=== PATIENT | male | born 1995 | race Hispanic/Latino ===

== ENCOUNTER 2024-02-16 09:02 | Inpatient (IN) | payer MEDICAID ==
[~2024-02-16] VITALS: Ht 162.6 cm; Wt 63.5 kg
[2024-02-16 10:24] LABS: EOSINOPHILS # (AUTO) 0.02 K/uL (0.00-0.70); EOSINOPHILS % (AUTO) 0.2 % (0.0-8.0); HEMATOCRIT 37.9 % (42-54); IMMATURE GRANULOCYTE ABSOLUTE 0.73 K/uL (0-1); LYMPHOCYTES # (AUTO) 0.7 K/uL (1.0-4.8); LYMPHOCYTES % (AUTO) 6.3 % (21.0-51.0); MEAN CORPUSCULAR HEMOGLOBIN 27.2 pg (27.0-33.0); MEAN CORPUSCULAR HGB CONC 32.2 g/dL (32.0-36.0); MEAN CORPUSCULAR VOLUME 84.6 fL (79-99); MONOCYTES # (AUTO) 1.7 K/uL (0.1-1.0); MONOCYTES % (AUTO) 16.4 % (3.0-13.0); NEUTROPHILS # (AUTO) 7.3 K/uL (1.8-7.7); NEUTROPHILS % (AUTO) 69.1 % (40.0-77.0); PLATELET COUNT (AUTO) 485 K/uL (130-400); RED BLOOD CELL COUNT(AUTO) 4.48 MIL/uL (4.50-6.20); RED CELL DISTRIBUTION WIDTH 15.7 % (11.0-15.5); WHITE BLOOD COUNT (AUTO) 10.5 K/uL (4.8-10.8)
[2024-02-16] MEDS: 0.9%NACL 1000ML 1,000 ML IV ONE (10:30)
[2024-02-16] MEDS: acetaMINOPHEN 500 MG TABLET PO ONE (10:31)
[2024-02-16 10:33] LABS: CREATININE 0.6 mg/dL (0.5-1.3); POTASSIUM 3.8 mmol/L (3.5-5.1)
[2024-02-16 10:34] LABS: INR 1.11 (0.85-1.15); PROTHROMBIN TIME 11.9 SEC (9.6-11.6)
[2024-02-16 10:35] LABS: PARTIAL THROMBOPLASTIN TIME 32.2 SEC (26.3-35.5)
[2024-02-16 11:06] LABS: SARS-CoV-2, RNA, NAAT NEGATIVE SARS CoV-2 (NEGATIVE)
[2024-02-16 11:11] VITALS: TEMP 98.7
[2024-02-16] MEDS: ZOSYN 3.375GM +NS 50ML IV ONE (12:54)
[2024-02-16] MEDS: VANCOMYCIN KIT 1 GM/250 ML IV.KIT IV ONE (13:20)
[2024-02-16 13:25] LABS: HEMATOCRIT 34.9 % (42-54); MEAN CORPUSCULAR HEMOGLOBIN 27.1 pg (27.0-33.0); MEAN CORPUSCULAR HGB CONC 31.8 g/dL (32.0-36.0); MEAN CORPUSCULAR VOLUME 85.3 fL (79-99); RED BLOOD CELL COUNT(AUTO) 4.09 MIL/uL (4.50-6.20); RED CELL DISTRIBUTION WIDTH 15.8 % (11.0-15.5); WHITE BLOOD COUNT (AUTO) 10.4 K/uL (4.8-10.8)
[2024-02-16 13:40] LABS: CREATININE 0.7 mg/dL (0.5-1.3); POTASSIUM 3.6 mmol/L (3.5-5.1)
[2024-02-16 13:53] LABS: ALBUMIN 2.3 g/dL (3.5-5.0); BILIRUBIN,TOTAL 0.4 mg/dL (0.2-1.0); THYROID STIMULATING HORMONE 2.95 uIU/mL (0.36-3.74); TOTAL PROTEIN, SERUM 6.9 g/dL (6.0-8.3)
[2024-02-16 18:00] VITALS: BP 127/81; PULSE 114; RESP 18
[2024-02-16 18:30] VITALS: O2SAT 97
[2024-02-16] MEDS: KETOROLAC 30MG VIAL (30MG/ML) IVP PRN (18:37)
[2024-02-16 20:00] VITALS: BP 130/80; PULSE 102; RESP 18
[2024-02-16] MEDS ORDERED: 0.9% NACL 500ML IV.SOLN 500 ML IV SCH (20:30)
[2024-02-16] MEDS ORDERED: ACET-2743 PO (20:36)
[2024-02-16] MEDS ORDERED: HYDR-4060 PO (20:36)
[2024-02-16] MEDS: HYDROCODONE/ACETAMINOPHEN 5/325 MG TAB PO PRN (23:07)
[2024-02-16 23:49] VITALS: BP 131/78; PULSE 102; RESP 18
[2024-02-17 04:33] VITALS: BP 132/87; PULSE 99; RESP 19
[2024-02-17 08:00] VITALS: BP 133/79; PULSE 105; RESP 13; O2SAT 97
[2024-02-17 12:01] VITALS: BP 131/80; PULSE 102; RESP 14
== END 2024-02-17 12:10 | disposition left against medical advice (07) | DRG 720 ==
LOC: EDH 09:02 → EDHIP 13:02 → 4CH 17:30
PROVIDERS: ADMIT Internal Medicine Hematology & Oncology; ATTEND Internal Medicine Hematology & Oncology
DX: A41.9 Sepsis, unspecified organism (principal); D84.821 Immunodeficiency due to drugs; J98.4 Other disorders of lung; T45.1X5A Adverse effect of antineoplastic and immunosuppressive drugs, initial encounter; Z53.29 Procedure and treatment not carried out because of patient's decision for other reasons; Z20.822 Contact with and (suspected) exposure to COVID-19; Z88.8 Allergy status to other drugs, medicaments and biological substances; Z85.118 Personal history of other malignant neoplasm of bronchus and lung; Z85.47 Personal history of malignant neoplasm of testis; Z87.891 Personal history of nicotine dependence
CPT/HCPCS: 36415; 71045; 71250; 80048; 80053; 82550; 83605; 84145; 84443; 84484; 85025; 85027; 85610; 85730; 87040; 87635; 93005; 96361; 96365; G0378; J1885; J2543; J3370; J7030